=== PATIENT | female | born 1980 | race Two or more races ===

== ENCOUNTER 2020-12-13 11:27 | Emergency (ER) | payer SELFPAY ==
[~2020-12-13] VITALS: Ht 170.2 cm; Wt 183.4 kg
[2020-12-13] MEDS ORDERED: IOHEXOL 300 MG/ML 75 ML VIAL. IV ONE (12:30)
[2020-12-13] MEDS ORDERED: IV NORMAL SALINE 1,000ML 1,000 ML IV ONE (12:30)
[2020-12-13 13:06] LABS: BASO # 0.1 x10^3/uL (0.0-0.2); BASO % 1 % (0-3); EOS # 0.1 x10^3/uL (0.0-0.7); EOS % 1 % (0-3); HEMATOCRIT 40.7 % (36.0-47.0); HEMOGLOBIN 13.8 g/dL (12.0-15.5); LYMPH # 2.6 x10^3/uL (1.0-4.8); LYMPH % 19 % (24-48); MEAN CORPUSCULAR HEMOGLOBIN 30 pg (25-35); MEAN CORPUSCULAR HGB CONC 34 g/dL (31-37); MEAN CORPUSCULAR VOLUME 88 fL (79-100); MONO # 0.6 x10^3/uL (0.0-1.1); MONO % 4 % (0-9); NEUT # 10.4 x10^3uL (1.8-7.7); NEUT % 76 % (31-73); PLATELET COUNT 312 x10^3/uL (140-400); RED BLOOD COUNT 4.62 x10^6/uL (3.50-5.40); RED CELL DISTRIBUTION WIDTH 12.9 % (11.5-14.5); WHITE BLOOD COUNT 13.7 x10^3/uL (4.0-11.0)
[2020-12-13 13:19] LABS: ALBUMIN 2.4 g/dL (3.4-5.0); ALBUMIN/GLOBULIN RATIO 0.4 (1.0-1.7); CALCIUM 8.9 mg/dL (8.5-10.1); CREATININE 0.6 mg/dL (0.6-1.0); GFR 110.2; MAGNESIUM 1.7 mg/dL (1.8-2.4); PHOSPHORUS 2.6 mg/dL (2.6-4.7); POTASSIUM 3.6 mmol/L (3.5-5.1); TOTAL BILIRUBIN 0.3 mg/dL (0.2-1.0); TOTAL PROTEIN 8.3 g/dL (6.4-8.2)
--- NOTE | 2020-12-13 14:15 | RAD ---
EXAM: Pelvis CT with intravenous contrast. HISTORY: Gluteal abscess. TECHNIQUE: Computed tomographic images of the pelvis were obtained following the administration of co ntrast. *One or more of the following individualized dose reduction techniques were utilized for this examina tion: 1. Automated exposure control. 2. Adjustment of the mA and/or kV according to patient size. 3. Use of iterative reconstruction technique. COMPARISON: None. FINDINGS: There is a complex fluid collection with internal debris within the substance fat of the po sterior medial right buttock measuring approximately 11.0 cm in maximum dimension. There are few smal l loculations along the margins of the collection and there is surrounding fatty stranding. No soft t issue gas is seen. There is mild overlying skin thickening. There is suspected hepatic steatosis and hepatomegaly, partially included on the [id number]. There is a small simple appearing cyst within the lower mid zone of the right kidney. There is no evidence of bowel obstruction. There is distal colonic diverticulosis. There is no diverticulitis. The bladde r is unremarkable. The uterus and ovaries are unremarkable. There are multiple prominent right greate r than left inguinal lymph nodes which are physiologic or reactive in etiology. There is suspected dependent edema overlying the sacrum. There are tiny nodules and calcifications wi thin the buttocks likely due to fat necrosis. There is lumbar scoliosis. There is grade 1 anterolisth esis of L5 on S1. There is a diffuse disc bulge and endplate osteophytosis with mild right facet arth ropathy at L3-L4, resulting in severe right greater than left foraminal and central canal stenosis. T here is a disc bulge with endplate remodeling and mild bilateral facet arthropathy at L4-L5, resultin g in moderate bilateral foraminal and central canal stenosis. There is a disc bulge with bilateral po sterior lateral osteophyte complexes at L5-S1. The comminution of this finding and moderate to severe lateral facet arthropathy and grade 1 anterolisthesis results in severe bilateral foraminal and mild central canal stenosis. IMPRESSION: 1. Complex fluid collection within the subcutaneous fat of the posterior medial right buttock measuri ng approximately 11.0 cm in maximum dimension and consistent with an abscess. There is surrounding in flammatory stranding and overlying skin thickening likely due to cellulitis. No gas is seen. 2. Severe multilevel degenerative change involving the lower lumbar spine, resulting in stenosis at t he aforementioned levels. 3. Colonic diverticulosis. 4. Suspected hepatomegaly and hepatic steatosis. 5. Suggest small right renal cyst. Obstructive performed for simple cysts. 6. Suspected reactive inguinal lymph nodes. Electronically signed by: Erica Gonzales MD (12/13/2020 2:13 PM) [id number]
[2020-12-13 14:38] VITALS: BP 151/67
--- NOTE | 2020-12-13 14:46 | PHYS DOC ---
Adult General Chief Complaint Chief Complaint: ABSCESS HPI HPI Patient is a 40-year-old female presents emergency department complaining of a boil on her buttocks that has been there for approximately 2 days. Patient states she has had one before in the same area in the past but it went away on its own. Patient states she does not get abscesses often. States she has been taken to tablets of 200 mg Motrin every 6 hours for the past 2 days related to pain and fever of a home temperature taken which she reports between 100.0 and 101.0 F oral temp. Patient denies any headaches, visual changes, chest pain, cough, shortness of breath, nasal congestion or chest congestion. Patient denies any abdominal pain, nausea, vomiting or diarrhea. Patient denies any numbness or tingling to her extremities. Patient denies any urinary tract infection type signs and symptoms. Patient denies any allergies to medications, states she only takes 800 mg of Metformin twice a day. Patient reports her last tetanus shot was less than 5 years ago. Patient states she sees Dr. Travon Antoine at [facility] on [place], [place]. Patient denies any other physical complaints or physical concerns. Patient reports a 10/10 on a 1- 10 pain scale. Review of Systems Review of Systems 14 body systems of review of systems have been reviewed. See HPI for pertinent positives and negative responses, otherwise all other systems are negative, nonpertinent or noncontributory. Current Medications Current Medications Current Medications Medications (Trade) Dose Ordered Sig/Timur Start Time Stop Time Status Last Admin Dose Admin Fentanyl Citrate (Fentanyl 2ml Vial) 75 mcg 1X ONCE 12/13/20 12:30 12/13/20 12:33 DC 12/13/20 12:47 75 MCG Iohexol (Omnipaque 300 Mg/ml) 75 ml 1X ONCE 12/13/20 12:30 12/13/20 12:33 DC 12/13/20 13:25 75 ML Sodium Chloride 1,000 ml @ 1,000 mls/hr 1X ONCE 12/13/20 12:30 12/13/20 13:29 DC 12/13/20 12:46 1,000 MLS/HR Allergies Allergies Allergies Coded Allergies Type Severity Reaction Last Updated Verified No Known Drug Allergies 12/13/20 No Physical Exam Physical Exam Constitutional: Well developed, well nourished, no acute distress, non-toxic appearance. Patient lying in right lateral recumbent position during physical exam in no apparent distress. HENT: Normocephalic, atraumatic, bilateral external ears normal, oropharynx moist, no oral exudates, nose normal. Eyes: PERRLA, EOMI, conjunctiva normal, no discharge. Neck: Normal range of motion, no tenderness, supple, no stridor. Cardiovascular:Heart rate regular rhythm, no murmur, heart sounds S1-S2 to auscultation. Lungs & Thorax: Bilateral breath sounds clear to auscultation no adventitious lung sounds appreciated. Abdomen: Bowel sounds normal, soft, no tenderness, no masses, no pulsatile masses. Patient morbidly obese. Skin: Warm, dry, no erythema, no rash. 0.5 cm skin lesion nondrainage with 4 cm diameter erythematous area with poorly demarcated borders, induration extends 10 cm in diameter. Fluctuant abscess elicits pain with manipulation. Back: No tenderness, no CVA tenderness. Extremities: No tenderness, no cyanosis, no clubbing, ROM intact, no edema. Neurologic: Alert and oriented X 3, normal motor function, normal sensory function, no focal deficits noted. Psychologic: Affect normal, judgement normal, mood normal. Current Patient Data Vital Signs Vital Signs Date Time Temp Pulse Resp B/P (MAP) Pulse Ox O2 Delivery O2 Flow Rate FiO2 12/13/20 12:47 16 Lab Results Laboratory Tests Test 12/13/20 12:32 White Blood Count 13.7 x10^3/uL (4.0-11.0) H Red Blood Count 4.62 x10^6/uL (3.50-5.40) Hemoglobin 13.8 g/dL (12.0-15.5) Hematocrit 40.7 % (36.0-47.0) Mean Corpuscular Volume 88 fL (79-100) Mean Corpuscular Hemoglobin 30 pg (25-35) Mean Corpuscular Hemoglobin Concent 34 g/dL (31-37) Red Cell Distribution Width 12.9 % (11.5-14.5) Platelet Count 312 x10^3/uL (140-400) Neutrophils (%) (Auto) 76 % (31-73) H Lymphocytes (%) (Auto) 19 % (24-48) L Monocytes (%) (Auto) 4 % (0-9) Eosinophils (%) (Auto) 1 % (0-3) Basophils (%) (Auto) 1 % (0-3) Neutrophils # (Auto) 10.4 x10^3uL (1.8-7.7) H Lymphocytes # (Auto) 2.6 x10^3/uL (1.0-4.8) Monocytes # (Auto) 0.6 x10^3/uL (0.0-1.1) Eosinophils # (Auto) 0.1 x10^3/uL (0.0-0.7) Basophils # (Auto) 0.1 x10^3/uL (0.0-0.2) Sodium Level 135 mmol/L (136-145) L Potassium Level 3.6 mmol/L (3.5-5.1) Chloride Level 101 mmol/L (98-107) Carbon Dioxide Level 26 mmol/L (21-32) Anion Gap 8 (6-14) Blood Urea Nitrogen 8 mg/dL (7-20) Creatinine 0.6 mg/dL (0.6-1.0) Estimated GFR (Cockcroft-Gault) 110.2 BUN/Creatinine Ratio 13 (6-20) Glucose Level 362 mg/dL (70-99) H Lactic Acid Level 1.7 mmol/L (0.4-2.0) Calcium Level 8.9 mg/dL (8.5-10.1) Phosphorus Level 2.6 mg/dL (2.6-4.7) Magnesium Level 1.7 mg/dL (1.8-2.4) L Total Bilirubin 0.3 mg/dL (0.2-1.0) Aspartate Amino Transferase (AST) 26 U/L (15-37) Alanine Aminotransferase (ALT) 41 U/L (14-59) Alkaline Phosphatase 143 U/L (46-116) H Total Protein 8.3 g/dL (6.4-8.2) H Albumin 2.4 g/dL (3.4-5.0) L Albumin/Globulin Ratio 0.4 (1.0-1.7) L EKG EKG [] Radiology/Procedures Radiology/Procedures PATIENT: VESNA WILEY HELENACCOUNT: [id number] : 1980 LOCATION: ER AGE: 40 SEX: F EXAM STATUS: REG ER ORD. PHYSICIAN: DELMER GAMBINO APRN REASON: RT SIDE GLUTEAL ABSCESS SCAN DONE AP AND PA TO VIEW ABSCESS PROCEDURE: CT PELVIS W/CONTRAST EXAM: Pelvis CT with intravenous contrast. HISTORY: Gluteal abscess. TECHNIQUE: Computed tomographic images of the pelvis were obtained following the administration of contrast. *One or more of the following individualized dose reduction techniques were utilized for this examination: 1. Automated exposure control. 2. Adjustment of the mA and/or kV according to patient size. 3. Use of iterative reconstruction technique. COMPARISON: None. FINDINGS: There is a complex fluid collection with internal debris within the substance fat of the posterior medial right buttock measuring approximately 11.0 cm in maximum dimension. There are few small loculations along the margins of the collection and there is surrounding fatty stranding. No soft tissue gas is s een. There is mild overlying skin thickening. There is suspected hepatic steatosis and hepatomegaly, partially included on the [id number]. There is a small simple appearing cyst within the lower mid zone of the right kidney. There is no evidence of bowel obstruction. There is distal colonic diverticulosis. There is no diverticulitis. The bladder is unremarkable. The uterus and ovaries are unremarkable. There are multiple prominent right greater than left inguinal lymph nodes which are physiologic or reactive in etiology. There is suspected dependent edema overlying the sacrum. There are tiny nodules and calcifications within the buttocks likely due to fat necrosis. There is lumbar scoliosis. There is grade 1 anterolisthesis of L5 on S1. There is a diffu se disc bulge and endplate osteophytosis with mild right facet arthropathy at L3-L4, resulting in severe right greater than left foraminal and central canal stenosis. There is a disc bulge with endplate remodeling and mild bilateral facet arthropathy at L4-L5, resulting in moderate bilateral foraminal and central canal stenosis. There is a disc bulge with bilateral posterior lateral osteophyte complexes at L5-S1. The comminution of this finding and moderate to severe lateral facet arthropathy and grade 1 anterolisthesis results in severe bilateral foraminal and mild central canal stenosis. IMPRESSION: 1. Complex fluid collection within the subcutaneous fat of the posterior medial right buttock measuring approximately 11.0 cm in maximum dimension and consist ent with an abscess. There is surrounding inflammatory stranding and overlying skin thickening likely due to cellulitis. No gas is seen. 2. Severe multilevel degenerative change involving the lower lumbar spine, resulting in stenosis at the aforementioned levels. 3. Colonic diverticulosis. 4. Suspected hepatomegaly and hepatic steatosis. 5. Suggest small right renal cyst. Obstructive performed for simple cysts. 6. Suspected reactive inguinal lymph nodes. Electronically signed by: Erica Clifford MD (12/13/2020 2:13 PM) [id number] DICTATED AND SIGNED BY: ERICA CLIFFORD MD DATE: 12/13/20 1405 CC: DELMER GAMBINO APRN; PCP,UNKNOWN ~MTH0 0 Heart Score C/O Chest Pain: No Risk Factors: Risk Factors: DM, Current or recent (<one month) smoker, HTN, HLP, family history of CAD, obesity. Risk Scores: Risk Factors: DM, Current or recent (<one month) smoker, HTN, HLP, family history of CAD, obesity. Course & Med Decision Making Course & Med Decision Making Pertinent Labs and Imaging studies reviewed. (See chart for details) 40-year-old female, vital signs reviewed, presents emergency department concerning a gluteal abscess on the right buttocks for the past 2 days. Physical examination was concerning for possible deep tissue infectious process related to patient's morbid obesity. A CT scan was ordered of the pelvis to rule out deep tissue infection. A saline lock, CBC, BMP, lactic acid, blood cultures x2 were ordered related to patient's complaint of fever. Patient was afebrile for the emergency department today. A liter of normal saline was ordered, the patient was given 75 mcg of fentanyl for 10/[address] read interpreted by house radiologist was consistent with abscess and subcu fat tissue, house radiologist also reported other abnormalities not related to abscess. This is unlikely a destiny's gangrene. Please see incision and drainage note. Related to patient's history of type 2 diabetes, 2 g IV Rocephin was ordered in the ED today. Patient will be sent home with a prescription of Bactrim DS and Keflex to take p.o. for the next 10 days. Patient states she has good follow-up with her primary care physician and is able to see him on Thursday if needed. Discussed with patient abscess incision and drainage with packing care, sitz bath's at least twice a day until otherwise directed by her primary care physician. Strict wound reexamination this Thursday by primary care physician, discussed with patient oral antibiotics to be taken at home. Discussed with patient strict return to ER precautions and concerns. Discussed with patient abnormal CT scan read and to follow-up with primary care for ongoing investigation. Patient gave verbal understanding of discharge home instructions, abscess with packing care at home, warm water sitz bath at least twice a day, oral antibiotic prescription, strict follow-up with primary care physician on Thursday for reevaluation of wound and ongoing evaluation of abnormal CT findings, return to ER precautions or concerns. Patient states that her pain is now a 1/10 on a 1- 10 pain scale, patient states she feels much better and is ready to go home. Patient was discharged home without incident. Dragon Disclaimer Dragon Disclaimer This electronic medical record was generated, in whole or in part, using a voice recognition dictation system. Departure Departure: Impression: Primary Impression: Abscess, gluteal, right Additional Impression: Abnormal CT scan Disposition: HOME / SELF CARE / HOMELESS Condition: GOOD Referrals: PCP,UNKNOWN (PCP) Patient Instructions: Abscess Additional Instructions: You are seen today for abscess on your right buttocks. A incision and drainage of this abscess was performed. Because of the size of this abscess, it was packed with iodoform gauze. As we discussed there is a small amount of this gauze protruding from the abscess incision site. This assists in drainage of infection and prevention of further infection. As we discussed, it is imperative that you see your doctor in this Thursday for a reevaluation of this abscess. I would like for you to sit in warm water baths at least 2 times a day as this will assist in healing of this infection. I gave you an IV antibiotic Rocephin here in the emergency department today. I am sending you home with a prescription for 2 additional antibiotics that you will take by mouth these are Bactrim DS and Keflex. Please continue to take your diabetic medication as directed by your doctor. The iodoform gauze that was packed into the abscess wound cavity must be removed by a doctor. As we discussed at length, there were abnormal findings on your CT scan that may require follow-up with your primary care physician. Please let your primary care doctor know you were here in the emergency department today so that he may obtain the CT reading as interpreted by her house radiologist and determine if further follow-up is needed. Please return to the emergency department for worsening symptoms or other concerns. You may use [id number] Tylenol or Motrin for pain. EMERGENCY DEPARTMENT GENERAL DISCHARGE INSTRUCTIONS Thank you for coming to [facility] (ED) today and trusting us with you care. We trust that you had a positivie experience in our Emergency Department. If you wish to speak to the department management, you may call the director at . YOUR FOLLOW UP INSTRUCTIONS ARE FOLLOWS: 1. Do you have a private Doctor? If you do not have a private doctor, please ask for a resource list of physicians or clinics that may be able to assist you with follow up care. 2. The Emergency Physician has interpreted your x-rays. The X-Ray specialist will also review them. If there is a change in the findings, you will be notified in 48 hours when at all possible. 3. A lab test or culture has been done, your results will be reviewed and you will be notified if you need a change in treatment. ADDITIONAL INSTRUCTIONS AND INFORMATION: 1. Your care today has been supervised by a physician who is specially trained in emergency care. Many problems require more than one evaluation for a complete diagnosis and treatment. We recommend that you schedule your follow up appointment as recommended to ensure complete treatment of you illness or injury. If you are unable to obtain follow up care and continue to have a problem, or if your condition worsens, we recommend that you return to the ED. 2. We are not able to safely determine your condition over the phone nor are we able to give sound medical advice over the phone. For these safety reasons, if you call for medical advice we will ask you to come to the ED for further evaluation. 3. If you have any questions regarding these discharge instructions please call the ED at [phone]. SAFETY INFORMATION: In the interest of safety, wellness, and injury prevention; we encourage you to wear your sealbelt, if you smoke; quite smoking, and we encourage family to use a protective helmet for bicycling and other sporting events that present an increased risk for head injury. IF YOUR SYMPTOMS WORSEN OR NEW SYMPTOMS DEVELOP, OR YOU HAVE CONCERNS ABOUT YOUR CONDITION; OR IF YOUR CONDITION WORSENS WHILE YOU ARE WAITING FOR YOUR FOLLOW UP APPOINTMENT; EITHER CONTACT YOUR PRIMARY CARE DOCTOR, THE PHYSICIAN WHOSE NAME AND NUMBER YOU WERE GIVEN, OR RETURN TO THE ED IMMEDIATELY. Scripts Sulfamethoxazole/Trimethoprim (BACTRIM DS TABLET) 1 Each Tablet 1 TAB PO BID for ABSCESS for 10 Days, #20 TAB 0 Refills Prov: DELMER GAMBINO LEATHA 12/13/20 Cephalexin (CEPHALEXIN) 500 Mg Capsule 1 CAP PO QID for ABSCESS for 10 Days, #40 CAP 0 Refills Prov: LUNAWillDELMER Schuster APRN 12/13/20 Incision and Drainage Indication: [INDICATION:] Gluteal abscess Procedure: The patient was positioned appropriately and the skin over the incision site was prepped with Betadine swabs. Local anesthesia was anesthesia was achieved with 6 cc 2% lidocaine with epinephrine. An incision was then made over the central punctum with 11 blade scalpel, 140 cc of watery sanguinous fluid with malodorous exudative material was expressed. Loculations were disrupted with forcep. The drainage cavity was then irrigated with 1000 cc normal saline. The abscess cavity was packed with 1-1/2 yards of 1/2 inch iodoform gauze. Patient's tetanus status was up-to-date prior to arrival to the emergency department. A routine culture was taken of abscess material and sent to lab. The patient tolerated the procedure well. Complications: There were no complications during procedure. Problem Qualifiers ENDERDELMER LAIRD Landen ZHANG Dec 13, 2020 14:46
[2020-12-13] MEDS ORDERED: LIDOCAINE 2%/EPI 1:100,000 20 ML VIAL. IJ ONE (15:00)
[2020-12-13] MEDS ORDERED: IV NORMAL SALINE 100ML 100 ML ONE (15:49)
[2020-12-13] MEDS ORDERED: CEPH500C PO (16:12)
[2020-12-13] MEDS ORDERED: SULF1TAB24 PO (16:12)
== END 2020-12-13 16:55 | disposition home or self-care (01) ==
LOC: ER 11:27
DX: L02.31 Cutaneous abscess of buttock (principal); R94.8 Abnormal results of function studies of other organs and systems
CPT/HCPCS: 10060; 36415; 72193; 80053; 83605; 83735; 84100; 85025; 87040; 87070; 96361; 96365; 96375; 96376; 99285; J0696; J3010; J7030; Q9967